=== PATIENT | female | born 1965 | race Caucasian/White ===

== ENCOUNTER 2018-02-18 07:34 | Inpatient (IN) | payer BC ==
[~2018-02-18] VITALS: Ht 185.4 cm; Wt 95.3 kg
[2018-02-18 10:05] LABS: Basophils # (auto) 0 uL; Basophils % (auto) 0.3 % (0.0-2.0); Eosinophils # (auto) 0.2 uL; Eosinophils % (auto) 2.5 % (0.0-7.0); Hematocrit 42.6 % (36.0-46.0); Hemoglobin 14.4 g/dL (12.2-16.2); Lymphocytes # (auto) 1.1 uL; Lymphocytes % (auto) 15.5 % (10.0-50.0); Mean Corpuscular Hemoglobin 33.1 pg (28.0-32.0); Mean Corpuscular Hgb Conc. 33.7 g/dL (32.0-36.0); Mean Corpuscular Volume 98.4 fL (80.0-100.0); Monocytes # (auto) 0.4 uL; Monocytes % (auto) 6.1 % (0.0-12.0); Neutrophils # (auto) 5.3 uL; Neutrophils % (auto) 75.6 % (37.0-80.0); Platelet Count (auto) 232 10^3/uL (140-450); Red Blood Cells 4.33 10^6/uL (4.0-5.20); Red Cell Distribution Width 13.4 % (11.8-14.3)
[2018-02-18 10:18] LABS: INR 0.91 (0.9-1.15); Partial Thromboplastin Time 24.8 sec (23.78-33.04); Prothrombin Time 9.8 sec (9.27-12.13)
[2018-02-18 10:27] LABS: Alanine Aminotransferase 26 U/L (13-56); Albumin 3.4 g/dL (3.4-5.0); Alkaline Phosphatase 92 U/L (45-117); Anion Gap 7 (5-15); Aspartate Aminotransferase 19 U/L (15-37); BUN/Creatinine Ratio 13.9; Bilirubin, Total 1.2 mg/dL (0.2-1.0); Blood Urea Nitrogen 10 mg/dL (7-18); Calcium 8.8 mg/dL (8.5-10.1); Carbon Dioxide 23 mmol/L (21-32); Chloride 107 mmol/L (98-107); GFR African American 109 mL/min; GFR Non-African American 90 mL/min; Glucose 135 mg/dL (74-106); Potassium 3.9 mmol/L (3.5-5.1); Sodium 137 mmol/L (136-145); Total Protein 6.8 g/dL (6.4-8.2)
[2018-02-18] MEDS ORDERED: HYDROcodone-ACET 10/325MG TAB PO ONE (11:15)
[2018-02-18] MEDS ORDERED: ONDANSETRON HCL 4 MG/2 ML VIAL IV PRN (12:45)
[2018-02-18] MEDS: MULTIPLE VITAMIN TAB PO ONE ×2 (13:18→13:29)
[2018-02-18] MEDS ORDERED: ONDANSETRON ODT 4 MG TAB PO ONE ×2 (13:43→14:00)
[2018-02-18] MEDS ORDERED: KETOROLAC TROMETH 60MG/2ML VIAL IM ONE (13:45)
[2018-02-18 15:00] VITALS: BP 162/84
[2018-02-18] MEDS: HYDROcodone-ACET 5/325MG TAB PO PRN (16:03)
[2018-02-18 16:42] VITALS: BP 162/84
[2018-02-18] MEDS: KETOROLAC TROMETH 30 MG/ML 1ML VIAL IV PRN (19:56)
[2018-02-18 21:30] VITALS: BP 155/93
[2018-02-18] MEDS ORDERED: AML5T PO (21:45)
[2018-02-18] MEDS: LORazepam 2MG/ML-1ML VIAL IV PRN (22:41)
[2018-02-19] MEDS ORDERED: amLODIPine BESYLATE 5 MG TAB PO ONE
[2018-02-19] MEDS: HYDROcodone-ACET 5/325MG TAB PO PRN ×3 (00:50→14:20)
[2018-02-19 05:00] VITALS: BP 157/83
[2018-02-19 08:00] VITALS: BP 157/83
[2018-02-19] MEDS: KETOROLAC TROMETH 30 MG/ML 1ML VIAL IV PRN (08:49)
[2018-02-19] MEDS: LORazepam 2MG/ML-1ML VIAL IV PRN (08:49)
[2018-02-19 09:00] VITALS: BP 164/90
[2018-02-19] MEDS ORDERED: amLODIPine BESYLATE 5 MG TAB PO SCH (10:00)
[2018-02-19] MEDS ORDERED: MULTIPLE VITAMIN TAB PO SCH (10:00)
[2018-02-19 13:00] VITALS: BP 147/70
[2018-02-19 16:07] VITALS: BP 157/83
[2018-02-19 17:00] VITALS: BP 161/85
== END 2018-02-19 19:40 | disposition home or self-care (01) | DRG 563 ==
LOC: EDBD 07:34 → ER 07:34 → OVERFLOW 07:35 → WEST WING 13:54
PROVIDERS: ADMIT Internal Medicine; ATTEND Internal Medicine
DX: S82.831A Other fracture of upper and lower end of right fibula, initial encounter for closed fracture (principal); S42.201A Unspecified fracture of upper end of right humerus, initial encounter for closed fracture; I10 Essential (primary) hypertension; F17.210 Nicotine dependence, cigarettes, uncomplicated; W01.0XXA Fall on same level from slipping, tripping and stumbling without subsequent striking against object, initial encounter; Y93.89 Activity, other specified; Z88.5 Allergy status to narcotic agent; Y92.89 Other specified places as the place of occurrence of the external cause; Y99.8 Other external cause status
CPT/HCPCS: 36415; 71101; 73030; 73590; 80053; 84484; 85025; 85610; 85730; 96372; 97163; J1885; J2405; Q0162